=== PATIENT | male | born 1940 | race Caucasian/White ===

== ENCOUNTER 2019-11-10 09:48 | Emergency (ER) | payer MEDICARE, OTHER ==
[2019-11-10] MEDS ORDERED: Aspirin 81 MG Tab.Chew PO ONE (10:15)
[2019-11-10] MEDS ORDERED: Nitroglycerin 0.4 MG Tab.SL SL PRN (10:18)
--- NOTE | 2019-11-10 10:42 | CR ---
[id number] RAD/RAD Chest PA or AP 1V EXAM: RAD Chest PA or AP 1V INDICATION: CHEST PAIN. COMPARISON: CT radiograph examinations from September 2019. DISCUSSION: Cardiomediastinal silhouette is unchanged in size and contour compared to the prior examination. No infiltrate, effusion, pneumothorax, or edema. IMPRESSION: No acute findings or significant change from the prior examination. Vasquez Shepherd MD 11/10/19 1041 Thank you for allowing us to participate in the care of your patient.
[2019-11-10 10:50] LABS: CHLORIDE,CL 103 mmol/L (98-107); SODIUM,NA 141 mmol/L (136-145)
[2019-11-10 10:52] LABS: ANION GAP 17.3 mmol/L (10-20)
[2019-11-10] MEDS ORDERED: Ketorolac 30 MG/ML SDV IVPUSH ONE (14:45)
[2019-11-10] MEDS ORDERED: methylPREDNISolone Sodium Succinate 125 MG/2 ML SDV IVPUSH ONE (14:45)
[2019-11-10 14:48] VITALS: BP 115/84; PULSE 64
--- NOTE | 2019-11-10 14:53 | EDM.PDOC ---
ED HPI GENERAL MEDICAL PROBLEM - General Chief Complaint: Chest Pain Stated Complaint: chest pain sob Time Seen by Provider: 11/10/19 10:10 Source of Information: Reports: Patient History Limitations: Reports: No Limitations - History of Present Illness INITIAL COMMENTS - FREE TEXT/NARRATIVE: Pt with mid-chest pain Took NTG X 3 without change Has hx/o chest pain and recent stress test States stress test showed no acute findings No fever No cough Pain is increased with chest wall palpation today Onset: Gradual Duration: Hour(s): Location: Reports: Chest Quality: Reports: Ache Severity: Severe Worsens with: Reports: Breathing, Movement Associated Symptoms: Reports: No Other Symptoms Treatments [employer]: Reports: Nitroglycerin Middle Chest Pain Score (Numeric/FACES): 4 - Related Data Allergies Allergy/AdvReac Type Severity Reaction Status Date / Time Ufpsuhm-[id number]-Xlb Reductase Allergy Muscle Verified 11/10/19 10:24 Inhibitor Aches Home Meds: Home Meds Atenolol [Tenormin] 50 mg PO DAILY 05/24/16 [History] Fenofibric Acid (Choline) [Fenofibric Acid] 135 mg PO DAILY 05/24/16 [History] Finasteride [Proscar] 5 mg PO DAILY 05/24/16 [History] Fluticasone Propionate [Flonase Allergy Relief] 2 sprays NASBOTH BID 05/24/16 [ History] Gabapentin [Neurontin] 400 mg PO BID 05/24/16 [History] Glucosamine/Chondroitin Sulf A [Glucosamine Chondroitin Cap] 1 cap PO DAILY 05/04 [History] Vitamin E 400 unit PO DAILY 05/24/16 [History] Aspirin [Halfprin] 81 mg PO BRK 07/04/16 [History] Clopidogrel [Plavix] 75 mg PO DAILY 07/04/16 [History] Nitroglycerin [Nitrostat] 0.4 mg SL Q5M PRN 07/04/16 [History] Saxagliptin HCl [Onglyza] 5 mg PO DAILY 07/04/16 [History] Acetaminophen [Tylenol] 650 mg PO Q4H PRN 10/04/19 [History] Mometasone Furoate 1 dose TP DAILY 10/04/19 [History] Rosuvastatin Calcium 5 mg PO DAILY 10/04/19 [History] Tamsulosin [Tamsulosin 24 Hr] 0.4 mg PO DAILY 10/04/19 [History] Tolterodine Tartrate [Detrol LA] 4 mg PO DAILY 10/04/19 [History] metFORMIN [Glucophage] 500 mg PO BIDMEALS 10/04/19 [History] predniSONE 40 mg PO DAILY 10/04/19 [History] Past Medical History HEENT History: Reports: Allergic Rhinitis Cardiovascular History: Reports: CAD, Hypertension, Stents, Other (See Below) Other Cardiovascular History: dyslipidemia Respiratory History: Reports: COPD Gastrointestinal History: Reports: GERD Genitourinary History: Reports: Chronic Renal Insuffiency Neurological History: Reports: Neuropathy, Peripheral Endocrine/Metabolic History: Reports: Diabetes, Type II Oncologic (Cancer) History: Reports: Bladder - Past Surgical History Musculoskeletal Surgical History: Reports: Arthroscopic Procedure, Knee Replacement, Other (See Below) Social & Family History - Tobacco Use Smoking Status *Q: Unknown Ever Smoked - Recreational Drug Use Recreational Drug Use: No ED ROS GENERAL - Review of Systems Review Of Systems: See Below Respiratory: Reports: No Symptoms Cardiovascular: Reports: Chest Pain GI/Abdominal: Reports: No Symptoms ED EXAM, GENERAL - Physical Exam Exam: See Below Exam Limited By: No Limitations General Appearance: Alert, Moderate Distress Neck: Supple Respiratory/Chest: No Respiratory Distress, Lungs Clear, Other (Chest tender diffusely with palpation Worse on anterior chest) Cardiovascular: Regular Rate, Rhythm GI/Abdominal: Soft Extremities: No Pedal Edema Neurological: No Motor/Sensory Deficits Skin Exam: Warm, Dry Course - Vital Signs Last Recorded V/S: Last Vital Signs Temp 36.4 C 11/10/19 09:48 Pulse 60 11/10/19 11:30 Resp 16 11/10/19 11:30 BP 120/67 11/10/19 11:30 Pulse Ox 98 11/10/19 11:30 - Orders/Labs/Meds Orders: Active Orders 24 hr Category Date Time Status EKG 12 Lead [EKG Documentation Completion] [RC] STAT Care 11/10/19 10:14 Active Nitroglycerin [Nitrostat] Med 11/10/19 10:18 Active 0.4 mg SL Q5M PRN Medication Orders Nitroglycerin (Nitrostat) 0.4 mg SL Q5M PRN PRN Reason: Chest Pain Last Admin: 11/10/19 10:27 Dose: 0.4 mg Labs: Laboratory Tests 11/10/19 11/10/19 11/10/19 Range/Units 10:05 10:05 10:23 WBC 5.2 (4.0-10.0) x10^3/uL RBC 4.96 (4.5-6.0) x10^6/uL Hgb 13.9 L (14.0-18.0) g/dL Hct 40.7 (40.0-52.0) % MCV 82.1 (78.0-93.0) fL MCH 28.0 (26.0-32.0) pg MCHC 34.2 (32.0-36.0) g/dL RDW Coeff of Alessia 14.3 (10.0-15.0) % Plt Count 116 L (130-400) x10^3/uL Neut % (Auto) 66.2 (50.0-80.0) % Lymph % (Auto) 20.3 L (25.0-50.0) % Ray % (Auto) 9.0 (2.0-11.0) % Eos % (Auto) 3.3 (0.0-4.0) % Baso % (Auto) 1.2 (0.2-1.2) % Sodium 141 (136-145) mmol/L Potassium 4.3 (3.5-5.1) mmol/L Chloride 103 (98-107) mmol/L Carbon Dioxide 25 (21-32) mmol/L Anion Gap 17.3 (10-20) mmol/L BUN 20 H (7-18) mg/dL Creatinine 1.3 (0.70-1.30) mg/dL Est Cr Clr Drug Dosing TNP Estimated GFR (MDRD) 53 Glucose 287 H (74-106) mg/dL Calcium 9.9 (8.5-10.1) mg/dL Corrected Calcium 10.06 (8.5-10.1) mg/dL Total Bilirubin 1.0 (0.2-1.0) mg/dL AST 12 L (15-37) U/L ALT 20 (16-63) U/L Alkaline Phosphatase 41 L (46-116) U/L POC Troponin I 0.00 (0.00-0.08) ng/mL Troponin I (<=0.056) ng/mL Total Protein 7.4 (6.4-8.2) g/dL Albumin 3.8 (3.4-5.0) g/dL Globulin 3.6 Albumin/Globulin Ratio 1.06 11/10/19 Range/Units 14:05 WBC (4.0-10.0) x10^3/uL RBC (4.5-6.0) x10^6/uL Hgb (14.0-18.0) g/dL Hct (40.0-52.0) % MCV (78.0-93.0) fL MCH (26.0-32.0) pg MCHC (32.0-36.0) g/dL RDW Coeff of Alessia (10.0-15.0) % Plt Count (130-400) x10^3/uL Neut % (Auto) (50.0-80.0) % Lymph % (Auto) (25.0-50.0) % Ray % (Auto) (2.0-11.0) % Eos % (Auto) (0.0-4.0) % Baso % (Auto) (0.2-1.2) % Sodium (136-145) mmol/L Potassium (3.5-5.1) mmol/L Chloride (98-107) mmol/L Carbon Dioxide (21-32) mmol/L Anion Gap (10-20) mmol/L BUN (7-18) mg/dL Creatinine (0.70-1.30) mg/dL Est Cr Clr Drug Dosing Estimated GFR (MDRD) Glucose (74-106) mg/dL Calcium (8.5-10.1) mg/dL Corrected Calcium (8.5-10.1) mg/dL Total Bilirubin (0.2-1.0) mg/dL AST (15-37) U/L ALT (16-63) U/L Alkaline Phosphatase (46-116) U/L POC Troponin I (0.00-0.08) ng/mL Troponin I < 0.017 (<=0.056) ng/mL Total Protein (6.4-8.2) g/dL Albumin (3.4-5.0) g/dL Globulin Albumin/Globulin Ratio Meds: Medications Generic Name Dose Route Start Last Admin Trade Name Freq PRN Reason Stop Dose Admin Nitroglycerin 0.4 mg 11/10/19 10:18 11/10/19 10:27 Nitrostat SL 0.4 mg Q5M PRN Administration Chest Pain Discontinued Medications Generic Name Dose Route Start Last Admin Trade Name Mara PRN Reason Stop Dose Admin Aspirin 324 mg 11/10/19 10:15 11/10/19 10:25 Aspirin PO 11/10/19 10:16 324 mg ONETIME ONE Administration Ketorolac Tromethamine 30 mg 11/10/19 14:45 Toradol IVPUSH 11/10/19 14:46 ONETIME ONE Methylprednisolone Sodium Succinate 125 mg 11/10/19 14:45 Solu-Medrol IVPUSH 11/10/19 14:46 ONETIME ONE - Re-Assessments/Exams Free Text/Narrative Re-Assessment/Exam: 11/10/19 14:51 Lab, EKG and CXR without acute findings Pt pain unchanged with NTG Pain now a 1/10 Pt given Toradol 30 mg IV and Solumedrol 125 mg IV in ER Pt has remained stable Departure - Departure Time of Disposition: 15:00 Disposition: Home, Self-Care 01 Clinical Impression: Atypical chest pain Referrals: Mariam Finch DO [Primary Care Provider] - Additional Instructions: Follow up in clinic To ER if worse Sepsis Event Note - Evaluation Sepsis Screening Result: No Definite Risk - Focused Exam Vital Signs: Vital Signs Temp Pulse Resp BP BP Pulse Ox 11/10/19 11:30 60 16 120/67 98 11/10/19 10:27 164/83 H 11/10/19 09:48 36.4 C 62 18 164/83 H 98 Date Exam was Performed: 11/10/19 Time Exam was Performed: 14:47 - My Orders Last 24 Hours: My Active Orders 11/10/19 10:14 EKG 12 Lead [EKG Documentation Completion] [RC] STAT 11/10/19 10:18 Nitroglycerin [Nitrostat] 0.4 mg SL Q5M PRN - Assessment/Plan Last 24 Hours: My Active Orders 11/10/19 10:14 EKG 12 Lead [EKG Documentation Completion] [RC] STAT 11/10/19 10:18 Nitroglycerin [Nitrostat] 0.4 mg SL Q5M PRN
== END 2019-11-10 15:00 | disposition home or self-care (01) ==
LOC: VM.ED 09:48
DX: R07.89 Other chest pain (principal); I25.10 Atherosclerotic heart disease of native coronary artery without angina pectoris; J44.9 Chronic obstructive pulmonary disease, unspecified; E11.42 Type 2 diabetes mellitus with diabetic polyneuropathy; E11.22 Type 2 diabetes mellitus with diabetic chronic kidney disease; I12.9 Hypertensive chronic kidney disease with stage 1 through stage 4 chronic kidney disease, or unspecified chronic kidney disease; N18.9 Chronic kidney disease, unspecified; E78.5 Hyperlipidemia, unspecified; Z79.02 Long term (current) use of antithrombotics/antiplatelets; Z79.82 Long term (current) use of aspirin; Z79.84 Long term (current) use of oral hypoglycemic drugs; Z79.899 Other long term (current) drug therapy; Z88.8 Allergy status to other drugs, medicaments and biological substances
CPT/HCPCS: 36415; 71045; 80053; 84484; 85025; 93005; 99284-GF; A9270-GY; J1885; J2930

== ENCOUNTER 2021-10-14 10:56 | Emergency (ER) | payer MEDICARE ==
--- NOTE | 2021-10-14 11:35 | EDM.PDOC ---
ED HPI GENERAL MEDICAL PROBLEM - General Chief Complaint: Genitourinary Problem Stated Complaint: BLADDER AND BACK PAIN Time Seen by Provider: 10/14/21 11:05 Source of Information: Reports: Patient History Limitations: Reports: No Limitations - History of Present Illness INITIAL COMMENTS - FREE TEXT/NARRATIVE: She department complaints of urinary retention. Patient does have urinary concerns and does have Botox injections. He states that he did have Botox injection earlier this week and the risk factor with that is retention and spasms. He states that he started having urinary retention and spasms yesterday. They slowly have progressed and worsened in the last 24 hours. Patient states that he is going to the bathroom every 15 minutes however having very small amounts. Patient also states that he is lower abdomen is building with pressure. He feels like the urine is not expelling out of the bladder. Denies any foul-smelling, cloudy urine, burning sensation with urination or fevers. Onset: Gradual Location: Reports: Pelvis Quality: Reports: Pressure Severity: Mild Improves with: Reports: None Worsens with: Reports: None Associated Symptoms: Reports: No Other Symptoms - Related Data Allergies Allergy/AdvReac Type Severity Reaction Status Date / Time [id number]-[id number]-[id number] Reductase Allergy Muscle Verified 10/14/21 11:34 Inhibitor Aches [Hqpsgpl-Lsp-Snc Reductase Inhibitor] Home Meds: Home Meds Fenofibric Acid (Choline) [Fenofibric Acid] 135 mg PO DAILY 05/24/16 [History] Finasteride [Proscar] 5 mg PO DAILY 05/24/16 [History] Fluticasone Propionate [Flonase Allergy Relief] 2 sprays NASBOTH BID 05/24/16 [History] Gabapentin [Neurontin] 400 mg PO BID 05/24/16 [History] Glucosamine/Chondroitin Sulf A [Glucosamine Chondroitin Cap] 1 cap PO DAILY 05/24/16 [History] Vitamin E 400 unit PO DAILY 05/24/16 [History] atenoloL [Tenormin] 25 mg PO DAILY 05/24/16 [History] Aspirin [Halfprin] 81 mg PO BRK 07/04/16 [History] Clopidogrel [Plavix] 75 mg PO DAILY 07/04/16 [History] Saxagliptin HCl [Onglyza] 5 mg PO DAILY 07/04/16 [History] Acetaminophen [Tylenol] 325 - 650 mg PO Q4H PRN 10/04/19 [History] Rosuvastatin Calcium 5 mg PO DAILY 10/04/19 [History] Tamsulosin [Tamsulosin 24 Hr] 0.4 mg PO DAILY 10/04/19 [History] Tolterodine Tartrate [Detrol LA] 4 mg PO DAILY 10/04/19 [History] metFORMIN [Glucophage] 500 mg PO BIDMEALS 10/04/19 [History] Fluocinonide [Lidex 0.05% Oint] 1 applic TOP BID PRN 02/01/21 [History] Pantoprazole Sodium [Protonix] 40 mg PO DAILY 02/01/21 [History] Sertraline [Zoloft] 50 mg PO DAILY 02/01/21 [History] Past Medical History HEENT History: Reports: Allergic Rhinitis Cardiovascular History: Reports: CAD, Hypertension, Stents, Other (See Below) Other Cardiovascular History: dyslipidemia Respiratory History: Reports: COPD Gastrointestinal History: Reports: GERD Genitourinary History: Reports: Chronic Renal Insuffiency Neurological History: Reports: Neuropathy, Peripheral Endocrine/Metabolic History: Reports: Diabetes, Type II Oncologic (Cancer) History: Reports: Bladder - Past Surgical History Musculoskeletal Surgical History: Reports: Arthroscopic Procedure, Knee Replacement, Other (See Below) Other Musculoskeletal Surgeries/Procedures:: shoulder scoped ED ROS GENERAL - Review of Systems Review Of Systems: Comprehensive ROS is negative, except as noted in HPI. Constitutional: Reports: No Symptoms HEENT: Reports: No Symptoms Respiratory: Reports: No Symptoms Cardiovascular: Reports: No Symptoms Endocrine: Reports: No Symptoms GI/Abdominal: Reports: No Symptoms : Reports: Frequency, Urgency, Urinary Retention. Denies: Discharge, Dysuria, Hematuria, Incontinence, Irregular Menses Musculoskeletal: Reports: No Symptoms Skin: Reports: No Symptoms Neurological: Reports: No Symptoms Psychiatric: Reports: No Symptoms Hematologic/Lymphatic: Reports: No Symptoms Immunologic: Reports: No Symptoms ED EXAM, GENERAL - Physical Exam Exam: See Below Exam Limited By: No Limitations General Appearance: Alert, WD/WN, No Apparent Distress Eye Exam: Bilateral Eye: EOMI, PERRL Head: Atraumatic, Normocephalic Neck: Normal Inspection, Supple, Non-Tender, Full Range of Motion Respiratory/Chest: No Respiratory Distress, Chest Non-Tender, Decreased Breath Sounds Cardiovascular: Normal Peripheral Pulses, Regular Rate, Rhythm, No Edema (Male) Exam: No Hernia, Normal Inspection. No: Penile Lesions, Rash, Scrotal Swelling, Scrotum Tenderness (L), Scrotum Tenderness (R) Back Exam: Normal Inspection, Full Range of Motion Extremities: Normal Inspection, Normal Range of Motion, Non-Tender, No Pedal Edema, Normal Capillary Refill Neurological: Alert, Oriented, Normal Gait Psychiatric: Normal Affect, Normal Mood Skin Exam: Warm, Dry, Intact Course - Orders/Labs/Meds Orders: Active Orders 24 hr Category Date Time Status Bowers Catheter Insertion [Insert Urinary Catheter] [OM. Care 10/14/21 11:30 Ordered PC] Q24H Urinary Catheter Assessment [RC] ASDIRECTED Care 10/14/21 11:19 Active UA W/MICROSCOPIC [URIN] Stat Lab 10/14/21 11:25 Results Labs: Laboratory Tests 10/14/21 Range/Units 11:25 Urine Color Yellow (YELLOW) Urine Appearance Clear (CLEAR) Urine pH 6.5 (5.0-8.0) Ur Specific [place] 1.015 Urine Protein Negative (NEGATIVE) mg/dL Urine Glucose (UA) 100 H (NEGATIVE) mg/dL Urine Ketones Negative (NEGATIVE) mg/dL Urine Occult Blood Trace-lysed H (NEGATIVE) Urine Nitrite Negative (NEGATIVE) Urine Bilirubin Negative (NEGATIVE) Urine Urobilinogen 0.2 (0.2) EU/dL Ur Leukocyte Esterase Negative (NEGATIVE) Departure - Departure Time of Disposition: 11:40 Disposition: Home, Self-Care 01 Condition: Good Clinical Impression: Retention of urine - Discharge Information *PRESCRIPTION DRUG MONITORING PROGRAM REVIEWED*: Not Applicable *COPY OF PRESCRIPTION DRUG MONITORING REPORT IN PATIENT GILDARDO: Not Applicable Instructions: Acute Urinary Retention, Male, [id number] Forms: ED Department Discharge Additional Instructions: 1. rest 2. increase your water intake 3. Continue all at home medications 4. Activity and diet as tolerated 5. Can take over the counter Tylenol for any pain or discomfort 6. Follow up with PCP if symptoms continue, return, or progress 7. Call with any questions or concerns 8. Need to follow up Sunday for removal of bowers. Call and make an appointment - My Orders Last 24 Hours: My Active Orders 10/14/21 11:19 Urinary Catheter Assessment [RC] ASDIRECTED 10/14/21 11:25 UA W/MICROSCOPIC [URIN] Stat 10/14/21 11:30 Bowers Catheter Insertion [Insert Urinary Catheter] [OM.PC] Q24H - Assessment/Plan Last 24 Hours: My Active Orders 10/14/21 11:19 Urinary Catheter Assessment [RC] ASDIRECTED 10/14/21 11:25 UA W/MICROSCOPIC [URIN] Stat 10/14/21 11:30 Bowers Catheter Insertion [Insert Urinary Catheter] [OM.PC] Q24H Assessment:: 1. urinary retention Plan: 1. UA completed in ER 2. Bowers inserted 3. Patient to follow up on Sunday for further follow up 4. Patient and nursing staff was updated regarding the plan of care 5. Education provided the patient regarding activity, diet, rest, ov [id number] medication modalities, and follow-up care was provided 6. Patient and family are agreeable to the above plan of care 7. All questions and concerns were addressed with the patient and family prior to discharge
[2021-10-14 12:33] VITALS: BP 126/70; PULSE 72
== END 2021-10-14 11:50 | disposition home or self-care (01) ==
LOC: VM.ED 10:56
DX: R33.9 Retention of urine, unspecified (principal); I25.10 Atherosclerotic heart disease of native coronary artery without angina pectoris; E78.5 Hyperlipidemia, unspecified; I12.9 Hypertensive chronic kidney disease with stage 1 through stage 4 chronic kidney disease, or unspecified chronic kidney disease; E11.22 Type 2 diabetes mellitus with diabetic chronic kidney disease; N18.9 Chronic kidney disease, unspecified; J44.9 Chronic obstructive pulmonary disease, unspecified; K21.9 Gastro-esophageal reflux disease without esophagitis; E11.42 Type 2 diabetes mellitus with diabetic polyneuropathy; Z88.6 Allergy status to analgesic agent; Z79.82 Long term (current) use of aspirin; Z79.02 Long term (current) use of antithrombotics/antiplatelets; Z79.84 Long term (current) use of oral hypoglycemic drugs; Z79.899 Other long term (current) drug therapy
CPT/HCPCS: 51702; 81001; 99283-25; 99284

== ENCOUNTER 2022-05-11 16:46 | Emergency (ER) | payer MEDICARE ==
[2022-05-11 17:25] VITALS: BP 141/71; PULSE 71
== END 2022-05-11 17:14 | disposition home or self-care (01) ==
LOC: VM.ED 16:46
DX: T83.098A Other mechanical complication of other urinary catheter, initial encounter (principal); I25.10 Atherosclerotic heart disease of native coronary artery without angina pectoris; E11.22 Type 2 diabetes mellitus with diabetic chronic kidney disease; E11.42 Type 2 diabetes mellitus with diabetic polyneuropathy; I12.9 Hypertensive chronic kidney disease with stage 1 through stage 4 chronic kidney disease, or unspecified chronic kidney disease; N18.9 Chronic kidney disease, unspecified; J44.9 Chronic obstructive pulmonary disease, unspecified; Z88.8 Allergy status to other drugs, medicaments and biological substances; Z79.82 Long term (current) use of aspirin; Z79.02 Long term (current) use of antithrombotics/antiplatelets; Z79.899 Other long term (current) drug therapy
CPT/HCPCS: 99283; 99284

== ENCOUNTER 2022-05-31 21:47 | Emergency (ER) | payer MEDICARE ==
[2022-05-31 23:50] VITALS: PULSE 76
[2022-06-01 00:16] VITALS: BP 150/90
== END 2022-05-31 22:52 | disposition home or self-care (01) ==
LOC: VM.ED 21:47
DX: R33.9 Retention of urine, unspecified (principal); I25.10 Atherosclerotic heart disease of native coronary artery without angina pectoris; E11.42 Type 2 diabetes mellitus with diabetic polyneuropathy; E11.22 Type 2 diabetes mellitus with diabetic chronic kidney disease; I12.9 Hypertensive chronic kidney disease with stage 1 through stage 4 chronic kidney disease, or unspecified chronic kidney disease; N18.9 Chronic kidney disease, unspecified; J44.9 Chronic obstructive pulmonary disease, unspecified; K21.9 Gastro-esophageal reflux disease without esophagitis; Z88.8 Allergy status to other drugs, medicaments and biological substances; Z79.82 Long term (current) use of aspirin; Z79.02 Long term (current) use of antithrombotics/antiplatelets; Z79.899 Other long term (current) drug therapy
CPT/HCPCS: 51701; 51798; 99283-25

== ENCOUNTER 2022-07-04 14:09 | Emergency (ER) | payer MEDICARE ==
[2022-07-04 14:54] VITALS: PULSE 74
[2022-07-04 15:29] VITALS: BP 146/74
== END 2022-07-04 15:40 | disposition home or self-care (01) ==
LOC: VM.ED 14:09
DX: N39.0 Urinary tract infection, site not specified (principal); E11.22 Type 2 diabetes mellitus with diabetic chronic kidney disease; I12.9 Hypertensive chronic kidney disease with stage 1 through stage 4 chronic kidney disease, or unspecified chronic kidney disease; N18.9 Chronic kidney disease, unspecified; I25.10 Atherosclerotic heart disease of native coronary artery without angina pectoris; I10 Essential (primary) hypertension; K21.9 Gastro-esophageal reflux disease without esophagitis; J44.9 Chronic obstructive pulmonary disease, unspecified; Z79.84 Long term (current) use of oral hypoglycemic drugs; Z79.82 Long term (current) use of aspirin; Z79.02 Long term (current) use of antithrombotics/antiplatelets; Z79.899 Other long term (current) drug therapy
CPT/HCPCS: 51702; 81001; 87086; 87088; 87186; 99283-25; 99284

== ENCOUNTER 2022-08-19 15:08 | Emergency (ER) | payer MEDICARE ==
[2022-08-19 15:20] VITALS: BP 113/74; PULSE 74
== END 2022-08-19 16:00 | disposition home or self-care (01) ==
LOC: VM.ED 15:08
DX: T83.031A Leakage of indwelling urethral catheter, initial encounter (principal); J44.9 Chronic obstructive pulmonary disease, unspecified; I25.10 Atherosclerotic heart disease of native coronary artery without angina pectoris; I10 Essential (primary) hypertension; E11.9 Type 2 diabetes mellitus without complications; Z79.899 Other long term (current) drug therapy; Z79.82 Long term (current) use of aspirin; Z79.84 Long term (current) use of oral hypoglycemic drugs; Z87.891 Personal history of nicotine dependence
CPT/HCPCS: 51702; 99283

== ENCOUNTER 2022-09-06 16:36 | Emergency (ER) | payer MEDICARE, OTHER ==
[2022-09-06 17:53] VITALS: BP 134/75; PULSE 73
== END 2022-09-06 18:15 | disposition home or self-care (01) ==
LOC: VM.ED 16:36
DX: T83.018A Breakdown (mechanical) of other urinary catheter, initial encounter (principal); R31.9 Hematuria, unspecified; I12.9 Hypertensive chronic kidney disease with stage 1 through stage 4 chronic kidney disease, or unspecified chronic kidney disease; E11.22 Type 2 diabetes mellitus with diabetic chronic kidney disease; N18.9 Chronic kidney disease, unspecified; E11.40 Type 2 diabetes mellitus with diabetic neuropathy, unspecified; I25.10 Atherosclerotic heart disease of native coronary artery without angina pectoris; K21.9 Gastro-esophageal reflux disease without esophagitis; Z79.84 Long term (current) use of oral hypoglycemic drugs; Z79.899 Other long term (current) drug therapy
CPT/HCPCS: 99283; 99284

== ENCOUNTER 2022-09-25 23:52 | Observation (INO) | payer MEDICARE, OTHER ==
[2022-09-26] MEDS ORDERED: Acetaminophen/HYDROcodone 325-10 MG Tab PO ONE (01:50)
[2022-09-26 02:47] LABS: ANION GAP 12.3 mmol/L (5-15); CHLORIDE,CL 104 mmol/L (98-107); ESTIMATED GFR 50 mL/min (>=60); SODIUM,NA 135 mmol/L (136-145)
[2022-09-26] MEDS ORDERED: Sodium Chloride 0.9% 1,000 ML IV ONE (03:04)
[2022-09-26] MEDS ORDERED: Oxybutynin 5 MG Tab PO PRN (03:33)
[2022-09-26] MEDS ORDERED: Sodium Chloride 0.9% 10 ML Syringe FLUSH PRN (03:41)
[2022-09-26] MEDS ORDERED: Ondansetron 4 MG/2 ML SDV IV PRN (03:41)
[2022-09-26] MEDS ORDERED: Ondansetron 4 MG Tab.DIS PO PRN (03:41)
[2022-09-26] MEDS ORDERED: Acetaminophen/HYDROcodone 325-5 MG Tab PO PRN (03:44)
[2022-09-26] MEDS: Sodium Chloride 0.9% 1,000 ML IV SCH ×2 (04:08→13:12)
[2022-09-26] MEDS ORDERED: OXYBUTYNIN 10 MG PO PRN (10:44)
[2022-09-26] MEDS ORDERED: FENOFIBRIC ACID 135 MG PO SCH (12:15)
[2022-09-26] MEDS ORDERED: ROSUVASTATIN CALCIUM 5 MG PO SCH (13:15)
[2022-09-26] MEDS ORDERED: Sertraline 50 MG Tab (OWN SUPPLY) PO SCH (13:15)
[2022-09-26] MEDS ORDERED: ATENOLOL 50 MG PO SCH (13:15)
[2022-09-26] MEDS ORDERED: Pantoprazole 40 MG Tab.CR (OWN SUPPLY) PO SCH (13:15)
[2022-09-26] MEDS ORDERED: metFORMIN 500 MG Tab (OWN SUPPLY) PO SCH (13:15)
[2022-09-26] MEDS ORDERED: Magnesium Oxide 400 MG Tab PO SCH (13:15)
[2022-09-26] MEDS ORDERED: SAXAGLIPTIN HCL 5 MG PO SCH (13:15)
[2022-09-26] MEDS ORDERED: METFORMIN 1000 MG PO SCH (13:30)
[2022-09-26 17:03] VITALS: BP 150/75; PULSE 68
[2022-09-26] MEDS ORDERED: ZONISAMIDE 50 MG PO SCH (21:00)
== END 2022-09-26 17:49 | disposition short-term general hospital (02) ==
LOC: VM.ED 23:52 → VM.MS 09-26 03:30
PROVIDERS: ADMIT Physician Assistant Medical; ATTEND Physician Assistant Medical
DX: R33.9 Retention of urine, unspecified (principal); R31.9 Hematuria, unspecified; N40.0 Benign prostatic hyperplasia without lower urinary tract symptoms; I25.10 Atherosclerotic heart disease of native coronary artery without angina pectoris; I12.9 Hypertensive chronic kidney disease with stage 1 through stage 4 chronic kidney disease, or unspecified chronic kidney disease; E11.22 Type 2 diabetes mellitus with diabetic chronic kidney disease; N18.9 Chronic kidney disease, unspecified; E78.5 Hyperlipidemia, unspecified; J44.9 Chronic obstructive pulmonary disease, unspecified; Z79.899 Other long term (current) drug therapy; Z98.890 Other specified postprocedural states
CPT/HCPCS: 36415; 80048; 81001; 85025; A9270-GY; J7030

== ENCOUNTER 2023-07-20 10:42 | Emergency (ER) | payer OTHER, MEDICARE ==
[2023-07-20] MEDS: Acetaminophen/HYDROcodone 325-5 MG Tab PO ONE (12:19)
[2023-07-20 12:57] VITALS: BP 154/75; PULSE 62
== END 2023-07-20 12:34 | disposition home or self-care (01) ==
LOC: SUPCPDRO 10:42 → VM.ED 10:42
DX: R51.9 Headache, unspecified (principal); I25.10 Atherosclerotic heart disease of native coronary artery without angina pectoris; I12.9 Hypertensive chronic kidney disease with stage 1 through stage 4 chronic kidney disease, or unspecified chronic kidney disease; E11.22 Type 2 diabetes mellitus with diabetic chronic kidney disease; N18.9 Chronic kidney disease, unspecified; J44.9 Chronic obstructive pulmonary disease, unspecified; E78.5 Hyperlipidemia, unspecified; Z88.8 Allergy status to other drugs, medicaments and biological substances; Z79.02 Long term (current) use of antithrombotics/antiplatelets; Z79.82 Long term (current) use of aspirin; Z79.899 Other long term (current) drug therapy; Z87.891 Personal history of nicotine dependence; W18.09XA Striking against other object with subsequent fall, initial encounter; Y92.009 Unspecified place in unspecified non-institutional (private) residence as the place of occurrence of the external cause
CPT/HCPCS: 70450; 72125; 93005; 99284; A9270

== ENCOUNTER 2023-12-22 07:28 | Emergency (ER) | payer MEDICARE, OTHER ==
[2023-12-22 10:38] VITALS: BP 138/52; PULSE 68
== END 2023-12-22 10:28 | disposition home or self-care (01) ==
LOC: VM.ED 07:28
DX: S22.41XA Multiple fractures of ribs, right side, initial encounter for closed fracture (principal); R29.6 Repeated falls; I12.9 Hypertensive chronic kidney disease with stage 1 through stage 4 chronic kidney disease, or unspecified chronic kidney disease; N18.9 Chronic kidney disease, unspecified; I25.10 Atherosclerotic heart disease of native coronary artery without angina pectoris; J44.9 Chronic obstructive pulmonary disease, unspecified; K21.9 Gastro-esophageal reflux disease without esophagitis; E11.9 Type 2 diabetes mellitus without complications; Z79.899 Other long term (current) drug therapy; Z88.8 Allergy status to other drugs, medicaments and biological substances; W18.2XXA Fall in (into) shower or empty bathtub, initial encounter
CPT/HCPCS: 71100-RT; 72070; 72100; 93005; 93010; 99284

== ENCOUNTER 2024-03-18 16:11 | Inpatient (IN) | payer MEDICARE, OTHER ==
[2024-03-18] MEDS ORDERED: Celecoxib 100 MG Cap PO PRN (19:57)
[2024-03-18] MEDS ORDERED: Sodium Chloride 0.9% 10 ML Syringe FLUSH PRN (19:57)
[2024-03-18] MEDS ORDERED: Ondansetron 4 MG/2 ML SDV IV PRN (19:57)
[2024-03-18] MEDS ORDERED: tiZANidine 4 MG Tab PO PRN (19:57)
[2024-03-18] MEDS ORDERED: Acetaminophen/HYDROcodone 325-5 MG Tab PO PRN (19:57)
[2024-03-18] MEDS: Acetaminophen 325 MG Tab PO PRN (21:12)
[2024-03-18] MEDS: atorvaSTATin 40 MG Tab PO SCH (21:15)
[2024-03-18] MEDS: LORazepam 0.5 MG Tab PO PRN (21:16)
[2024-03-19] MEDS: Iopamidol 612 MG/ML 100 ML Bottle IVPUSH ONE (00:06)
[2024-03-19] MEDS: Pantoprazole 40 MG Tab.CR PO SCH (06:32)
[2024-03-19] MEDS ORDERED: metFORMIN 500 MG Tab PO SCH (08:00)
[2024-03-19] MEDS: Fenofibrate,Micronized 134 MG Cap PO SCH (08:23)
[2024-03-19] MEDS: DULoxetine 60 MG Cap PO SCH (08:23)
[2024-03-19] MEDS: Atenolol 25 MG Tab PO SCH (08:24)
[2024-03-19] MEDS: Aspirin 81 MG Tab.EC PO SCH (08:24)
[2024-03-19] MEDS: Magnesium Chloride 64 MG Tab.ER PO SCH (08:24)
[2024-03-19] MEDS: Potassium Chloride 20 MEQ Tab.ER PO SCH (08:24)
[2024-03-19] MEDS: Ferrous Sulfate 325 MG Tab PO SCH (08:26)
[2024-03-19] MEDS: Finasteride 5 MG Tab PO SCH (08:27)
[2024-03-19] MEDS: metFORMIN 500 MG Tab PO SCH (08:27)
[2024-03-19] MEDS: Vitamin E (dl-alpha-tocopherol acetate) 400 Unit Cap PO SCH (08:28)
[2024-03-19] MEDS: Sertraline 100 MG Tab PO SCH (08:28)
[2024-03-19] MEDS: Glucosamine 500 MG Cap PO SCH (08:28)
[2024-03-19] MEDS: Furosemide 20 MG Tab PO SCH (08:29)
[2024-03-19] MEDS: Famotidine 20 MG Tab PO SCH (08:29)
[2024-03-19] MEDS ORDERED: SEMAGLUTIDE 1 MG SQ SCH (10:00)
[2024-03-19 18:49] VITALS: PULSE 83
[2024-03-19] MEDS: atorvaSTATin 10 MG Tab ONE ×2 (20:18→23:32)
[2024-03-19] MEDS ORDERED: ZONISAMIDE 50 MG PO SCH (21:00)
[2024-03-19] MEDS: Rosuvastatin 20 MG Tab PO SCH (22:37)
[2024-03-20 05:55] VITALS: BP 162/89
== END 2024-03-20 11:45 | DRG 948 ==
LOC: VM.MS 16:50
PROVIDERS: ADMIT Physician Assistant; ATTEND Physician Assistant
DX: R53.1 Weakness (principal); R19.7 Diarrhea, unspecified; E11.22 Type 2 diabetes mellitus with diabetic chronic kidney disease; I25.10 Atherosclerotic heart disease of native coronary artery without angina pectoris; Z95.5 Presence of coronary angioplasty implant and graft; R29.6 Repeated falls; E11.42 Type 2 diabetes mellitus with diabetic polyneuropathy; J44.9 Chronic obstructive pulmonary disease, unspecified; C61 Malignant neoplasm of prostate; I48.0 Paroxysmal atrial fibrillation; N18.31 Chronic kidney disease, stage 3a; F41.1 Generalized anxiety disorder; K21.9 Gastro-esophageal reflux disease without esophagitis; I12.9 Hypertensive chronic kidney disease with stage 1 through stage 4 chronic kidney disease, or unspecified chronic kidney disease; E78.2 Mixed hyperlipidemia; Z88.8 Allergy status to other drugs, medicaments and biological substances; Z79.84 Long term (current) use of oral hypoglycemic drugs; Z79.82 Long term (current) use of aspirin; Z96.659 Presence of unspecified artificial knee joint; Z79.899 Other long term (current) drug therapy
CPT/HCPCS: 82947; 97110-GP; 97116-GP; A9270-GY

== ENCOUNTER 2024-04-02 20:57 | Emergency (ER) | payer MEDICARE, OTHER ==
[2024-04-02] MEDS: Acetaminophen 500 MG Tab PO ONE (22:20)
[2024-04-02 22:35] LABS: BASOPHILS PERCENT AUTO 0.3 % (0.2-1.2); EOSINOPHILS PERCENT AUTO 0.4 % (0.0-4.0); HEMATOCRIT 38.3 % (40.0-52.0); HEMOGLOBIN 13.3 g/dL (14.0-18.0); IMMATURE GRAN ABSOLUTE AUTO 0.09 x10^3/uL (0.00-0.07); LYMPHOCYTES ABSOLUTE AUTO 0.7 x10^3/uL (1.0-4.8); LYMPHOCYTES PERCENT AUTO 9.1 % (25.0-50.0); MEAN CORPUSCULAR HGB CONC 34.7 g/dL (32.0-36.0); MEAN CORPUSCULAR VOLUME 83.6 fL (78.0-93.0); MONOCYTES ABSOLUTE AUTO 0.6 x10^3/uL (0.0-0.8); MONOCYTES PERCENT AUTO 8.2 % (2.0-11.0); NEUTROPHILS ABSOLUTE AUTO 6.3 x10^3/uL (1.8-7.7); NEUTROPHILS PERCENT AUTO 80.8 % (50.0-80.0); PLATELET COUNT,PLT 131 x10^3/uL (130-400); RED BLOOD CELL COUNT 4.58 x10^6/uL (4.5-6.0); WHITE BLOOD CELL COUNT,WBC 7.8 x10^3/uL (4.0-10.0)
[2024-04-02 22:42] LABS: BLOOD UREA NITROGEN,BUN 29 mg/dL (7-18); CARBON DIOXIDE,CO2 22 mmol/L (21-32); CHLORIDE,CL 102 mmol/L (98-107); CREATININE 1.4 mg/dL (0.70-1.30); GLUCOSE RANDOM 130 mg/dL (70-99); POTASSIUM,K 4.6 mmol/L (3.5-5.1); SODIUM,NA 137 mmol/L (136-145)
[2024-04-02 22:43] LABS: ANION GAP 17.6 mmol/L (5-15); ESTIMATED GFR 50 mL/min (>=60)
[2024-04-02 22:51] LABS: APPEARANCE,URINE CLEAR (CLEAR); BILIRUBIN,URINE NEGATIVE (NEGATIVE); COLOR,URINE YELLOW (YELLOW); GLUCOSE,URINE NEGATIVE (NEGATIVE); KETONES,URINE NEGATIVE (NEGATIVE); LEUKOCYTE ESTERASE,URINE NEGATIVE (NEGATIVE); NITRITE,URINE NEGATIVE (NEGATIVE); OCCULT BLOOD,URINE MODERATE (NEGATIVE); PH,URINE 5.5 (5.0-8.0); PROTEIN,URINE 30 mg/dL (NEGATIVE); UROBILINOGEN,URINE 0.2 EU/dL (0.2)
[2024-04-02 22:59] LABS: BACTERIA,URINE NOT SEEN /HPF (NOT SEEN); MUCUS,URINE OCCASIONAL /LPF (NOT SEEN); RBC,URINE 20-30 /HPF (NOT SEEN); SQUAMOUS EPITHELIAL CELLS,UR NOT SEEN /HPF (NOT SEEN); WBC,URINE 0-5 /HPF (NOT SEEN)
[2024-04-02] MEDS: Sodium Chloride 0.9% 1,000 ML IV ONE (23:35)
[2024-04-03 06:18] VITALS: BP 142/78; PULSE 66
== END 2024-04-03 00:55 | disposition home or self-care (01) ==
LOC: VM.ED 20:57
DX: S00.03XA Contusion of scalp, initial encounter (principal); M54.2 Cervicalgia; I12.9 Hypertensive chronic kidney disease with stage 1 through stage 4 chronic kidney disease, or unspecified chronic kidney disease; E11.22 Type 2 diabetes mellitus with diabetic chronic kidney disease; N18.9 Chronic kidney disease, unspecified; K21.9 Gastro-esophageal reflux disease without esophagitis; Z88.6 Allergy status to analgesic agent; Z79.82 Long term (current) use of aspirin; Z79.899 Other long term (current) drug therapy; I25.10 Atherosclerotic heart disease of native coronary artery without angina pectoris; Z95.5 Presence of coronary angioplasty implant and graft; W19.XXXA Unspecified fall, initial encounter
CPT/HCPCS: 36415; 70450; 71250; 72125; 73060-LT; 73060-RT; 73562-LT; 73562-RT; 80048; 81001; 85025; 93005; 93010; 99283; 99285; A9270-GY; J7030

== ENCOUNTER 2024-04-04 22:20 | Emergency (ER) | payer MEDICARE, OTHER ==
[2024-04-04] MEDS: Acetaminophen 500 MG Tab PO ONE (23:36)
[2024-04-05 00:24] VITALS: BP 136/80; PULSE 86
== END 2024-04-05 00:26 | disposition home or self-care (01) ==
LOC: VM.ED 22:20
DX: M54.6 Pain in thoracic spine (principal); R07.89 Other chest pain; M25.511 Pain in right shoulder; I25.10 Atherosclerotic heart disease of native coronary artery without angina pectoris; I48.91 Unspecified atrial fibrillation; E11.9 Type 2 diabetes mellitus without complications; I12.9 Hypertensive chronic kidney disease with stage 1 through stage 4 chronic kidney disease, or unspecified chronic kidney disease; N18.9 Chronic kidney disease, unspecified; Z88.6 Allergy status to analgesic agent; Z79.82 Long term (current) use of aspirin; Z79.899 Other long term (current) drug therapy; Z79.84 Long term (current) use of oral hypoglycemic drugs; W01.198A Fall on same level from slipping, tripping and stumbling with subsequent striking against other object, initial encounter
CPT/HCPCS: 71250; 99284; A9270-GY

== ENCOUNTER 2024-04-28 06:38 | Emergency (ER) | payer MEDICARE, OTHER ==
[2024-04-28] MEDS: fentaNYL 50 MCG/ML SDV IVPUSH ONE (07:15)
[2024-04-28] MEDS: HYDROmorphone 1 MG/ML Syringe IVPUSH ONE ×2 (07:40→08:00)
[2024-04-28 08:13] VITALS: BP 148/95; PULSE 91
== END 2024-04-28 08:03 ==
LOC: VM.ED 06:38
DX: S42.301A Unspecified fracture of shaft of humerus, right arm, initial encounter for closed fracture (principal); I12.9 Hypertensive chronic kidney disease with stage 1 through stage 4 chronic kidney disease, or unspecified chronic kidney disease; I48.91 Unspecified atrial fibrillation; N18.9 Chronic kidney disease, unspecified; I25.10 Atherosclerotic heart disease of native coronary artery without angina pectoris; E11.22 Type 2 diabetes mellitus with diabetic chronic kidney disease; Z88.6 Allergy status to analgesic agent; Z79.82 Long term (current) use of aspirin; Z79.899 Other long term (current) drug therapy; Z79.84 Long term (current) use of oral hypoglycemic drugs; Z95.5 Presence of coronary angioplasty implant and graft; W19.XXXA Unspecified fall, initial encounter
CPT/HCPCS: 73060; 96374; 96375; 99283; J1170; J3010